=== PATIENT | female | born 2000 | race Caucasian/White ===

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

== ENCOUNTER → 2020-02-14 | Outpatient (REF) | payer OTHER ==
[~2020-02-14] MED LIST: BACT800T5 PO
[2020-02-14 13:51] LABS: HEMATOCRIT 38.4 % (36.0-47.0); HEMOGLOBIN 13.1 g/dl (12.0-15.5); MEAN CORPUSCULAR HEMOGLOBIN 30.5 pg (27.0-33.0); MEAN CORPUSCULAR HGB CONC 34.1 g/dl (32.0-36.5); MEAN CORPUSCULAR VOLUME 89.3 fl (80.0-96.0); PLATELET COUNT, AUTOMATED 231 10^3/uL (150-450)
[2020-02-14 19:32] LABS: HEPATITIS C VIRUS ABY INDEX 0.1 INDEX (<0.8); HIV 1&2 SCREEN CENTAUR NEGATIVE (NEGATIVE)
== END ==
LOC: M PLALAB 09:20
PROVIDERS: ATTEND Obstetrics & Gynecology
DX: Z34.01 Encounter for supervision of normal first pregnancy, first trimester (principal); Z3A.00 Weeks of gestation of pregnancy not specified

== ENCOUNTER → 2020-03-17 | Outpatient (CLI) | payer BC ==
--- NOTE | 2020-03-17 18:36 | REP ---
INDICATION: ANATOMY. COMPARISON: None. TECHNIQUE: Transabdominal obstetric sonography. FINDINGS: Scanning through the gravid uterus demonstrates a viable single intrauterine gestation in cephalic lie. motion is observed and heart rate is recorded at 161 beats per minute. A posterior placenta is seen, grade 1, without evidence of placenta previa. Amniotic fluid is subjectively normal. Closed cervical length is measured at 3.5 cm transabdominally. No extrauterine abnormality is observed. No anomaly is seen. The following anatomic structures are identified and felt to be sonographically unremarkable: cranium, choroid plexus, cavum, cerebellum and posterior fossa, face and profile, lungs, four-chamber heart with left and right ventricular outflow tract views, diaphragm, left-sided stomach, abdominal wall cord insertion, three-vessel umbilical cord, kidneys and bladder, spine, and upper and lower extremities. Biometry chart: BPD 4.3 cm, 19 weeks 0 days Head circumference 15.5 cm, 18 weeks 3 days Abdominal circumference 13.2 cm, 18 weeks 5 days Femur length 3.1 cm, 19 weeks 3 days Humeral length 2.8 cm, 19 weeks 0 days HC AC ratio normal 1.17 Cephalic index normal 0.79 Estimated weight 268 g, 0 lb 9 oz, 51st percentile for 18 weeks 6 days IMPRESSION: Viable single intrauterine gestation at 18 weeks 6 days by today's composite sonographic criteria. NARA by today's sonography August 12, 2020. No complication identified. anatomic survey is felt to be complete. <Electronically signed by Myles Winslow > 03/17/20 [id number]
== END ==
LOC: M WHC 14:13
PROVIDERS: ATTEND Advanced Practice Midwife
DX: Z34.02 Encounter for supervision of normal first pregnancy, second trimester (principal); Z3A.18 18 weeks gestation of pregnancy

== ENCOUNTER → 2020-05-09 | Outpatient (REF) | payer OTHER ==
[2020-05-09 14:22] LABS: HEMATOCRIT 40.1 % (36.0-47.0); MEAN CORPUSCULAR HEMOGLOBIN 29.7 pg (27.0-33.0); MEAN CORPUSCULAR HGB CONC 32.4 g/dl (32.0-36.5); MEAN CORPUSCULAR VOLUME 91.6 fl (80.0-96.0); PLATELET COUNT, AUTOMATED 219 10^3/uL (150-450); RED BLOOD COUNT 4.38 10^6/uL (4.00-5.40); WHITE BLOOD COUNT 13.3 10^3/uL (4.0-10.0)
== END ==
LOC: M PLALAB 08:12
PROVIDERS: ATTEND Advanced Practice Midwife
DX: Z34.02 Encounter for supervision of normal first pregnancy, second trimester (principal); Z3A.00 Weeks of gestation of pregnancy not specified

== ENCOUNTER 2020-06-08 13:24 | Outpatient (CLI) | payer BC, OTHER ==
[~2020-06-08] VITALS: Ht 165.1 cm; Wt 77.6 kg
[2020-06-08 13:51] VITALS: BP 122/83
[2020-06-08] MEDS ORDERED: PRENTAB9 PO (13:51)
[2020-06-08] MEDS ORDERED: CALCIUM GLUCONATE 1,000 MG in D5W MINI-BAG PLUS 100 ML IV PRN (14:50)
[2020-06-08] MEDS ORDERED: MAG Sulf (L&D) 4 GM/100 ML 4 GM in IV 1 EA IV ONE (15:00)
[2020-06-08] MEDS ORDERED: MAG Sulf (OBGYN) 20GM/500ML 20,000 MG in IV 1 EA IV SCH (15:00)
[2020-06-08] MEDS ORDERED: BETAMETHASONE SOLUSPAN 6MG/ML 5ML VIAL (J0702 PER 3MG) IM SCH (15:00)
[2020-06-08 15:08] VITALS: BP 124/72
[2020-06-08 15:16] LABS: HEMATOCRIT 37.2 % (36.0-47.0); HEMOGLOBIN 12.2 g/dl (12.0-15.5); MEAN CORPUSCULAR HGB CONC 32.8 g/dl (32.0-36.5); MEAN CORPUSCULAR VOLUME 88.4 fl (80.0-96.0); PLATELET COUNT, AUTOMATED 235 10^3/uL (150-450); RED BLOOD COUNT 4.21 10^6/uL (4.00-5.40); WHITE BLOOD COUNT 13.8 10^3/uL (4.0-10.0)
[2020-06-08 15:18] VITALS: BP 127/70
[2020-06-08] MEDS ORDERED: LR 1,000 ML IV SCH (15:25)
--- NOTE | 2020-06-08 15:29 | HPEPDOC ---
Obstetrical History & Physical General Date of Admission 06/08/20 History of Present Illness Subjective/HPI: 20-year-old at 30+2 weeks' gestation. Final EDC of 08/15/20 by LMP consistent with a second trimester ultrasound at 18+ weeks. Presents today complaining of uterine cramping/contraction/pelvic discomfort over the past 2 days. Symptoms have intensified today. Denies any vaginal bleeding or loss of fluid. Reports regular movement. Denies headache, visual changes, shortness of breath, chest pain. course uncomplicated thus far PMH/SH: none Objective: Normotensive. Normal heart rate. Afebrile Abdomen soft, nontender, nondistended. Uterine fundus , nontender. Extremities nonedematous, nontender Pelvic: Sterile speculum exam revealed a closed appearing cervix, no bulging membranes. no pooling, no vaginal bleeding, no abnormal discharge or foul odor. Sterile vaginal exam/digital: 2-3cm dilated, 90% effaced, -3 station, intact membranes palpated, no bloody show Transvaginal ultrasound, limited: Cervical length unable to be measured (could not appreciate any functional length to measure. U-shaped funneling. Breech presentation. EFM: Reactive, moderate variability, no decelerations [place]: irregularly timed contractions; q 10-15min See printout for labs Assessment/plan: 20 year-old at 30+2 weeks' gestation. Advanced cervical dilation, significant cervical shortening/funneling. High risk for . Current maternal and condition is reassuring and stable for transfer -Transfer to [place]; Accepting physician: Dr. Chaudhary - corticosteroids initiated; Betamethasone 12mg IM @1502 -Magnesium sulfate for tocolysis + neuroprotection (4g IV load, followed by 2g/hour maintenance) -GBS and COVID screens obtained. Reevaluated at 1710 and noted to be stable/asymptomatic. Transfer continued. Past Medical History Allergies Coded Allergies: No Known Allergies (Verified , 10/18/02) Medications Scheduled No.137/Iron/Folic Acd ( Vitamin Tablet) 1 Each Tablet, 1 TAB PO DAILY Physical Examination Vital Signs/I&O Vital Signs Date Time Temp Pulse Resp B/P (MAP) Pulse Ox O2 Delivery O2 Flow Rate FiO2 06/08/20 13:51 98.6 98 20 122/83 (96) TRINY RODNEYb 25, 2021 15:29
[2020-06-08] MEDS ORDERED: INDOMETHACIN 25 MG CAP PO ONE (16:00)
[2020-06-08 16:51] LABS: AMORPHOUS SEDIMENT SMALL (NEGATIVE); APPEARANCE, URINE CLOUDY (CLEAR); BACTERIA, URINE AUTO NEGATIVE (NEGATIVE); BILIRUBIN, URINE AUTO NEGATIVE (NEGATIVE); BLOOD, URINE BLOOD 1+ (NEGATIVE); COLOR, URINE YELLOW (YELLOW); GLUCOSE, URINE (UA) AUTO NEGATIVE (NEGATIVE); KETONE, URINE AUTO NEGATIVE (NEGATIVE); LEUKOCYTE ESTERASE, URINE AUTO 1+ (NEGATIVE); MUCUS, URINE SMALL (NEGATIVE); NITRITE, URINE AUTO NEGATIVE (NEGATIVE); PROTEIN, URINE AUTO NEGATIVE (NEGATIVE); RBC, URINE AUTO 2 /HPF (0-3); SPECIFIC GRAVITY URINE AUTO 1.018 (1.002-1.035); SQUAMOUS EPITHELIAL CELL UR AU 0 /HPF (0-6); UROBILINOGEN, URINE AUTO 0.2 mg/dL (0.0-2.0); WBC, URINE AUTO 4 /HPF (0-3)
[2020-06-08 17:03] LABS: AMPHETAMINES URINE REFLEX NEGATIVE (NEGATIVE); BARBITURATES URINE REFLEX NEGATIVE (NEGATIVE); BENZODIAZEPINES URINE REFLEX NEGATIVE (NEGATIVE); CANNABINOIDS URINE REFLEX NEGATIVE (NEGATIVE); COCAINE METABOLITE URINE REFLE NEGATIVE (NEGATIVE); METHADONE URINE REFLEX NEGATIVE (NEGATIVE); OPIATES URINE REFLEX NEGATIVE (NEGATIVE); PHENCYCLIDINE URINE REFLEX NEGATIVE (NEGATIVE)
== END 2020-06-08 17:25 | disposition short-term general hospital (02) ==
LOC: M LDO 13:24
PROVIDERS: ATTEND Obstetrics & Gynecology
DX: O60.03 Preterm labor without delivery, third trimester (principal); Z3A.30 30 weeks gestation of pregnancy
CPT/HCPCS: 59025; 76815; 80307; 81001; 85027; 87081; 96365; 96372; G0378; G0463; J0702; J3475; U0002

== ENCOUNTER 2020-06-12 15:29 | Outpatient (CLI) | payer BC, OTHER ==
[~2020-06-12] VITALS: Ht 165.1 cm; Wt 79.1 kg
[2020-06-12] VITALS (9 sets, daily range): BP systolic 110–129; BP diastolic 66–79
[~2020-06-12 15:29] MED LIST changes: +PRENTAB9 PO
[2020-06-12] MEDS ORDERED: MAG Sulf (OBGYN) 20GM/500ML 20,000 MG in IV 1 EA IV SCH (16:45)
[2020-06-12] MEDS ORDERED: MAGNESIUM *L&D* 4GM/100ML BAG (40MG/ML) As Ordered ONE (16:45)
[2020-06-12] MEDS ORDERED: MAGNESIUM *L&D* 4GM/100ML BAG (40MG/ML) IV ONE (16:45)
[2020-06-12] MEDS ORDERED: MAGNESIUM SULFATE 4% INJ 20GM/500ML (40MG/ML) As Ordered ONE (16:47)
[2020-06-12] MEDS ORDERED: LR 1,000 ML IV ONE (17:00)
--- NOTE | 2020-06-12 17:05 | IPNPDOC ---
Text Note Date of Service The patient was seen on 06/12/20. NOTE 20-year-old at 30+6 weeks' gestation. Final EDC of 08/15/20 by LMP consistent with a second trimester ultrasound at 18+ weeks. Presents today complaining of uterine cramping/contraction that started this morning at 0600. Symptoms consistent with last when she presented to [facility] and was transferred to [place] for labor. She stayed at [place] for 3 days and was discharged 2 days ago. She was betamethasone complete 06/09/20. Denies any vaginal bleeding or loss of fluid. Reports regular movement. Denies headache, visual changes, shortness of breath, chest pain. course complicated by contractions/ labor. PMHx: asthma, renal agenesis Surgical Hx: none FHx: mother with HTN Social Hx: single, non-smoker, denies drug use or alcohol use during or prior to , no history of STD. Objective: Normotensive. Normal heart rate. Afebrile Abdomen soft, nontender, nondistended. Uterine fundus , nontender. Extremities nonedematous, nontender Sterile vaginal exam/digital: 4 cm dilated, 100% effaced, -2, station, bulging bag of fluid with scant amount of bloody show on glove. Breech presentation noted on bedside ultrasound. . EFM: FHR: 150, moderate variability, positive accelerations, no decelerations [place]: irregularly timed contractions; q 3-10 minutes lasting 30-60 seconds Assessment/plan: 20 year-old at 30+6 weeks' gestation. After collaborating with Dr. Nichols he recommended discussing transfer with [facility] to to gestation. Advanced cervical dilation. High risk for . Breech presentation. -Current maternal and condition is reassuring and stable for transfer -Transfer to [place]; Accepting physician: Dr. Chaudhary -Magnesium sulfate for neuroprotection (4g IV load, followed by 2g/hour maintenance) -COVID screen obtained. -Indomethacin for contractions (50 mg PO ordered) EARLENE SERRANO CNM Jun 12, 2020 17:05
[2020-06-12] MEDS ORDERED: INDOMETHACIN 25 MG CAP PO ONE (18:00)
[2020-06-12] MEDS ORDERED: LR 1,000 ML IV SCH (18:00)
[2020-06-12] MEDS ORDERED: CALCIUM GLUCONATE 1,000 MG in D5W MINI-BAG PLUS 100 ML IV ONE (18:10)
== END 2020-06-12 18:45 | disposition home or self-care (01) ==
LOC: M LDO 15:29
PROVIDERS: ATTEND Advanced Practice Midwife
DX: O60.03 Preterm labor without delivery, third trimester (principal); Z3A.30 30 weeks gestation of pregnancy
CPT/HCPCS: 59025; 76815; 96374; G0378; G0463; J3475; U0002

== ENCOUNTER → 2024-02-16 | Outpatient (REF) | payer BC, OTHER ==
[2024-02-16 18:41] LABS: Trichomonas vaginalis (AMP) NOT DETECTED (NEGATIVE)
[2024-02-16 19:05] LABS: GC DNA AMPLIFICATION NEGATIVE (NEGATIVE)
== END ==
LOC: M SFHCWAGY 17:06
PROVIDERS: ATTEND Nurse Practitioner Family
DX: Z11.3 Encounter for screening for infections with a predominantly sexual mode of transmission (principal); N73.9 Female pelvic inflammatory disease, unspecified

== ENCOUNTER → 2024-03-02 | Outpatient (REF) | payer BC, OTHER | LOC: M LAB REF 20:41 | PROVIDERS: ATTEND Physician Assistant Medical | DX: J02.9 Acute pharyngitis, unspecified (principal) ==

== ENCOUNTER → 2024-06-05 | Outpatient (CLI) | payer BC ==
[2024-06-05 09:33] LABS: FREE T4 1.36 NG/DL (0.89-1.76)
[2024-06-07 08:46] LABS: THYROID STIMULATING HORMONE 2.176 uIU/ML (0.55-4.78)
== END ==
LOC: M LAB 08:42
PROVIDERS: ATTEND Internal Medicine
DX: E05.90 Thyrotoxicosis, unspecified without thyrotoxic crisis or storm (principal)

== ENCOUNTER → 2024-08-11 | Outpatient (CLI) | payer BC ==
[2024-08-12 06:48] LABS: FOLLICLE STIMULATING HORMONE 6.2 mIU/ML
== END ==
LOC: M WUC 14:21
PROVIDERS: ATTEND Internal Medicine
DX: R61 Generalized hyperhidrosis (principal); F41.9 Anxiety disorder, unspecified

== ENCOUNTER → 2024-08-24 | Outpatient (REF) | payer BC ==
[2024-08-24 18:40] LABS: Trichomonas vaginalis (AMP) NOT DETECTED (NEGATIVE)
[2024-08-24 19:03] LABS: GC DNA AMPLIFICATION NEGATIVE (NEGATIVE)
== END ==
LOC: M SFHCWAGY 16:54
PROVIDERS: ATTEND Nurse Practitioner Family
DX: N73.9 Female pelvic inflammatory disease, unspecified (principal)

== ENCOUNTER → 2025-02-03 | Outpatient (CLI) | payer MEDICAID ==
[2025-02-03 18:28] LABS: BASO # 0.0 10^3/uL (0.0-0.2); BASO % 0.6 % (0.0-1.0); EOS # 0.3 10^3/uL (0.0-0.5); EOS % 4.2 % (0.0-3.0); LYMPH # 2.1 10^3/uL (1.5-5.0); LYMPH % 30.2 % (24.0-44.0); MONO # 0.7 10^3/uL (0.0-0.8); MONO % 9.5 % (2.0-8.0); NEUTROPHILS # 3.8 10^3/uL (1.5-8.5); NEUTROPHILS % 55.2 % (36.0-66.0); PLATELET COUNT, AUTOMATED 295 10^3/uL (150-450)
[2025-02-03 18:51] LABS: ALT/SGPT 13 U/L (7.0-40); AST/SGOT 17 U/L (<34); CALCIUM LEVEL 9.4 MG/DL (8.5-10.1); CARBON DIOXIDE LEVEL 29 MMOL/L (20-31); CHLORIDE LEVEL 105 MMOL/L (98-107); CREATININE FOR GFR 0.70 MG/DL (0.55-1.30); GLOMERULAR FILTRATION RATE > 90.0 (>60); POTASSIUM SERUM 4.4 MMOL/L (3.5-5.1); SODIUM LEVEL 142 MMOL/L (136-145)
== END ==
LOC: M WUC 15:32
PROVIDERS: ATTEND Internal Medicine
DX: F31.60 Bipolar disorder, current episode mixed, unspecified (principal)